=== PATIENT | female | born 1955 | race Caucasian/White ===

== ENCOUNTER → 2017-04-30 | Outpatient (CLI) | payer BC ==
--- NOTE | 2017-04-30 10:52 | RAD ---
Left foot, 3 views, 04/30/2017: History: Soft tissue mass at ankle There are mild degenerative changes at scattered interphalangeal joints and the first MTP joint. No fracture or destructive bony lesion is seen. There is minimal spurring at the ankle joint and the talonavicular articulation. There is mild generalized subcutaneous edema about the foot. IMPRESSION: 1. Mild scattered degenerative changes. 2. No acute bony abnormality is detected.
== END | disposition home or self-care (01) ==
LOC: DXRADRC 10:34
PROVIDERS: ATTEND Podiatrist Foot & Ankle Surgery
DX: M19.072 Primary osteoarthritis, left ankle and foot (principal); M79.89 Other specified soft tissue disorders
CPT/HCPCS: 73630

== ENCOUNTER → 2018-04-01 | Outpatient (CLI) | payer BC ==
--- NOTE | 2018-04-01 11:28 | RAD ---
DATE: 04/01/2018 EXAM: MAMMO ADI SANTA LT, BREAST LEFT HISTORY: Left breast pain COMPARISON: 07/24/2017 This study was interpreted with the benefit of Computerized Aided Detection (CAD). The breast parenchyma is heterogeneously dense, which could reduce sensitivity of mammography. Breast parenchyma level C. FINDINGS: 2-D and 3-D tomosynthesis imaging was performed in CC and MLO projections. No new or enlarging breast densities are seen. No architectural distortion or spiculated mass is evident. No suspicious microcalcifications are seen. IMPRESSION: Stable left mammograms without evidence of malignancy. Left breast ultrasound, 04/01/2018: A targeted ultrasound exam of the lateral aspect of left breast was performed in the area of reported pain. Normal heterogeneous fibroglandular shadows are present. No mass is identified. IMPRESSION: The targeted ultrasound exam of the left breast reveals no abnormality. BI-RADS CATEGORY: 2 BENIGN FINDING(S) RECOMMENDED FOLLOW-UP: 12M 12 MONTH FOLLOW-UP PQRS compliance statement: Patient information was entered into a reminder system with a target due date for the next mammogram. Mammography is a sensitive method for finding small breast cancers, but it does not detect them all and is not a substitute for careful clinical examination. A negative mammogram does not negate a clinically suspicious finding and should not result in delay in biopsying a clinically suspicious abnormality. "Our facility is accredited by the [employer] Mammography Program."
== END | disposition home or self-care (01) ==
LOC: MAMMO 10:02
PROVIDERS: ATTEND Nurse Practitioner Family
DX: N64.4 Mastodynia (principal)
CPT/HCPCS: 76641; 77065; G0279; 77061

== ENCOUNTER → 2018-09-18 | Outpatient (CLI) | payer BC ==
--- NOTE | 2018-09-18 17:55 | RAD ---
CHEST PA LATERAL History: CHEST WALL PAIN OFF AND ON SINCE NOVEMBER Comparison: None. Findings: The cardiomediastinal silhouette is normal. Pulmonary vasculature is normal. The lungs are clear. No pleural effusion or pneumothorax is seen. There is no acute bone abnormality. Minimal right convexity thoracic scoliosis. IMPRESSION: No acute cardiopulmonary process. Electronically signed by: Karson Bowling MD (09/18/2018 5:52 PM) [id number]
== END | disposition home or self-care (01) ==
LOC: RAD 14:55
PROVIDERS: ATTEND Physician Assistant Medical
DX: R07.89 Other chest pain (principal); M41.84 Other forms of scoliosis, thoracic region
CPT/HCPCS: 71046

== ENCOUNTER → 2019-07-13 | Outpatient (CLI) | payer BC ==
--- NOTE | 2019-07-13 08:52 | RAD ---
PQRS Compliance statement: One or more of the following individualized dose reduction techniques were utilized for this examination: 1. Automated exposure control. 2. Adjustment of the mA and/or kV according to patient size. 3. Use of iterative reconstruction technique. Indication:Left lower quadrant abdominal pain. TECHNIQUE: CT abdomen and pelvis without IV contrast with multiplanar reformats. COMPARISON: None FINDINGS: Limited evaluation of solid abdominal and pelvic organs due to lack of IV contrast. Heart is normal in size. No pericardial or pleural effusion. Clear lung bases. Noncontrast appearance of the liver, spleen, gallbladder, pancreas, adrenals and kidneys within normal limits. No enlarged retroperitoneal or pelvic adenopathy. No free pelvic fluid or ascites. No bowel obstruction. Low-lying midline cecum. Appendix not visualized. No right lower quadrant inflammatory changes. Status post hysterectomy. Urinary bladder demonstrates no radiopaque stones. No pneumoperitoneum. No suspicious bony lesion. IMPRESSION: Limited evaluation of solid abdominal and pelvic organs due to lack of IV contrast. No bowel obstruction. No nephrolithiasis or hydronephrosis. Electronically signed by: Lambert Conde DO (07/13/2019 8:49 AM) [facility]
== END | disposition home or self-care (01) ==
LOC: CT 08:03
PROVIDERS: ATTEND Physician Assistant Medical
DX: R10.32 Left lower quadrant pain (principal); Z90.710 Acquired absence of both cervix and uterus
CPT/HCPCS: 74176

== ENCOUNTER → 2019-07-23 | Outpatient (CLI) | payer BC ==
--- NOTE | 2019-07-23 17:03 | RAD ---
US PELVIS W/TV History: Left lower quadrant pelvic pain Comparison: None. Findings: Multiple transabdominal sonographic images of pelvis are submitted. There has been hysterectomy. Right ovary measured 1.8 x 1.6 x 1.1 cm. Left ovary measured 2 x 1.5 x 1.4 cm. There is normal low resistance vascularity ovaries bilaterally. No free fluid is demonstrated. Sonographic images of the left lateral pelvis at site of pain are submitted, no abnormality by ultrasound, some bowel present in this region. Urinary bladder morphology is within normal limits. Transvaginal ultrasound: Multiple transvaginal sonographic images of the pelvis are submitted. Ovaries could not be visualized. No free fluid is demonstrated. Impression: 1. There has been hysterectomy. No significant abnormality is demonstrated. Electronically signed by: Hayden Miller MD (07/23/2019 5:00 PM) [facility]
--- NOTE | 2019-07-23 18:19 | RAD ---
BILATERAL SCREENING MAMMOGRAM, 3-D History: Routine screening. Comparison: 07/26/2016, 07/24/2017 mammographic exams. Technique: MLO and CC digital tomosynthesis (3D) images obtained. Radiologist reviewed these images on dedicated workstation. Findings: Breast Tissue Density C : The breasts are heterogeneously dense, which may obscure small masses. There are no dominant masses, suspicious microcalcifications, or architectural distortion. IMPRESSION: No mammographic evidence of malignancy. Recommend routine screening. BI-RADS category 1: Negative. The images were reviewed with computer-aided detection. Patient information is entered into reminder system with a target due date for the next screening mammogram. Mammography is the most sensitive method for finding small breast cancers, but it does not detect them all and is not a substitute for careful clinical examination. A negative mammogram does not negate a clinically suspicious finding and should not result in delay in biopsying a clinically suspicious abnormality. "Our facility is accredited by the [employer] Mammography Program." Electronically signed by: Paulie Elizondo MD (07/23/2019 6:17 PM) [facility]
== END | disposition home or self-care (01) ==
LOC: US 08:42
PROVIDERS: ATTEND Physician Assistant Medical
DX: Z12.31 Encounter for screening mammogram for malignant neoplasm of breast (principal); R10.32 Left lower quadrant pain; Z90.710 Acquired absence of both cervix and uterus
CPT/HCPCS: 76830; 76856; 77063; 77067

== ENCOUNTER → 2019-08-06 | Outpatient (CLI) | payer BC ==
--- NOTE | 2019-08-06 14:44 | RAD ---
EXAM: CT Abdomen and Pelvis without IV contrast CLINICAL HISTORY: Left lower quadrant pain radiating to the left flank. COMPARISON: 07/13/2019 TECHNIQUE: Helical CT of the abdomen and pelvis without intravenous contrast. Axial, coronal and sagittal reformatted images were generated. PQRS compliance statement - One or more of the following individualized dose reduction techniques were utilized for this study: 1. Automated exposure control 2. Adjustment of the mA and/or kV according to patient size 3. Use of iterative reconstruction technique FINDINGS: Lack of intravenous contrast limits evaluation of solid organs, vasculature, and lymph nodes. Lower chest: Lung bases are clear. Abdomen and Pelvis: No focal liver lesion. Gallbladder is normal. No biliary ductal dilatation. Spleen is unremarkable. Adrenal glands are normal. Pancreas is unremarkable. No focal renal lesion. No renal tract calculus. Mild bladder wall thickening may be seen with cystitis. Large volume colonic stool content is seen, particularly in the right colon. Appendix is not seen. No significant right lower quadrant battery changes are seen. No small bowel dilatation. No abdominal or pelvic ascites. No abdominal or pelvic lymphadenopathy. Small fat-containing periumbilical hernia. There is normal in caliber. Bones: Osseous structures are grossly unremarkable. IMPRESSION: 1. No evidence for bowel obstruction. 2. Large volume colonic stool content particularly in the right colon. 3. No renal tract calculus. 4. Small fat-containing periumbilical hernia. Electronically signed by: Demetris Phillips MD (08/06/2019 2:41 PM) [id number]
== END | disposition home or self-care (01) ==
LOC: CT 12:02
PROVIDERS: ATTEND Physician Assistant Medical
DX: K42.9 Umbilical hernia without obstruction or gangrene (principal)
CPT/HCPCS: 74176

== ENCOUNTER → 2019-10-04 | Outpatient (CLI) | payer MEDICARE ==
--- NOTE | 2019-10-04 17:05 | RAD ---
LUMBAR SPINE MIN 4V History: Low back pain Comparison: May 20, 2012 Findings: 5 views of the lumbar spine are submitted. Lumbar vertebral body stature is maintained. There is negligible anterior spondylolisthesis at L3-4. There is multilevel lumbar facet degenerative change. There is mild L5-S1 degenerative disc disease. Impression: 1. There is negligible anterior spondylolisthesis L3-4. There is multilevel lumbar facet degenerative change. There is mild L5-S1 degenerative disc disease. Electronically signed by: Hayden Miller MD (10/04/2019 5:02 PM) [id number]
== END | disposition home or self-care (01) ==
LOC: DXRAD 15:10
PROVIDERS: ATTEND Physician Assistant Medical
DX: M43.16 Spondylolisthesis, lumbar region (principal); M51.37 Other intervertebral disc degeneration, lumbosacral region; M47.817 Spondylosis without myelopathy or radiculopathy, lumbosacral region
CPT/HCPCS: 72110

== ENCOUNTER → 2019-10-11 | Outpatient (CLI) | payer MEDICARE ==
--- NOTE | 2019-10-11 14:06 | RAD ---
DATE: 10/11/2019. EXAM: BREAST LEFT. HISTORY: Left breast and axillary pain laterally. COMPARISON: Screening mammography 07/23/2019. FINDINGS: Sonography of the left breast was performed in the retroareolar and 2-4:00 positions at the site of tenderness. Images of the left axilla were also performed. Mildly dilated ducts are noted deep to the nipple. There is no intraductal mass. In the region of concern laterally, only normal parenchyma is seen. There is no correlate for breast tenderness. Images of the axilla reveal small normal-appearing lymph nodes and no correlate for pain. BI-RADS CATEGORY: 2 BENIGN FINDING(S). RECOMMENDED FOLLOW-UP: CLIN FOLLOW UP IMAGING CLINICALLY INDICATED. 1. Recommend ongoing clinical follow-up of left breast tenderness. Continue yearly screening in June 2020. PQRS compliance statement: Patient information was entered into a reminder system with a target due date 07/23/2020 for the next mammogram. Mammography is a sensitive method for finding small breast cancers, but it does not detect them all and is not a substitute for careful clinical examination. A negative mammogram does not negate a clinically suspicious finding and should not result in delay in biopsying a clinically suspicious abnormality. "Our facility is accredited by the [employer] Mammography Program."
== END | disposition home or self-care (01) ==
LOC: US 12:53
PROVIDERS: ATTEND Physician Assistant Medical
DX: N64.4 Mastodynia (principal)
CPT/HCPCS: 76641

== ENCOUNTER → 2020-07-25 | Outpatient (CLI) | payer BC, MEDICARE ==
--- NOTE | 2020-07-27 10:44 | RAD ---
DATE: 07/25/2020 3:25 PM EXAM: MAMMO ADI SCREENING BILATERAL HISTORY: Screening COMPARISON: 07/23/2019, 07/24/2017 Bilateral CC and MLO views of the breasts were performed. Bilateral breast tomosynthesis was performed in CC and MLO projections. This study was interpreted with the benefit of Computerized Aided Detection (CAD). FINDINGS: Breast Density: HETERO The breast parenchyma Is heterogeneously dense, which could reduce sensitivity of mammography. Breast parenchyma level C No suspicious masses, microcalcifications or architectural distortion is present to suggest malignancy in either breast. The visualized axillae are unremarkable. IMPRESSION: No mammographic evidence of malignancy. BI-RADS CATEGORY: 1 NEGATIVE RECOMMENDED FOLLOW-UP: 12M 12 MONTH FOLLOW-UP Annual screening mammography is recommended, unless clinically indicated sooner based on symptoms or change in physical exam. PQRS compliance statement: Patient information was entered into a reminder system with a target due date for the next mammogram. Mammography is a sensitive method for finding small breast cancers, but it does not detect them all and is not a substitute for careful clinical examination. A negative mammogram does not negate a clinically suspicious finding and should not result in delay in biopsying a clinically suspicious abnormality. "Our facility is accredited by the [employer] Mammography Program."
== END | disposition home or self-care (01) ==
LOC: MAMMO 15:24
PROVIDERS: ATTEND Physician Assistant Medical
DX: Z12.31 Encounter for screening mammogram for malignant neoplasm of breast (principal)
CPT/HCPCS: 77063; 77067

== ENCOUNTER → 2021-01-19 | Outpatient (CLI) | payer MEDICARE ==
--- NOTE | 2021-01-19 11:45 | RAD ---
Examination: 1. Left digital diagnostic mammogram. 2. Left breast and axillary ultrasound. INDICATION: 65-year-old woman complaining of lateral left breast pain and tenderness in the left axil la. COMPARISON: Bilateral mammogram of 07/25/2020. TECHNIQUE: CC and MLO views of the left breast were obtained with 2-D and 3-D technique. Targeted ult rasound of the lateral left breast and left axilla was next pursued in the areas of patient reported concern. FINDINGS: Heterogeneously dense breast parenchyma. No developing mass, suspicious calcification or architectural distortion is appreciated. Ultrasound of the lateral left breast identifies a sonographically benign intramammary lymph node at the 3:30 o'clock position 8 cm from the nipple. Ultrasound of the left axilla reveals a 1.1 x 0.6 cm hypoechoic peripherally vascular lesion within t he skin in the left axilla that corresponds to the patient's palpable tenderness. IMPRESSION: Mammographically and sonographically benign findings with probable furuncle in the left axilla. BI-RADS Category 2 Benign findings Recommend clinical management which may include biopsy if there are any clinically suspicious finding s. In the absence of a clinically suspicious finding, recommend return to routine screening next due after 07/25/2021 Patient entered into a reminder system with target due date for next mammogram. Electronically signed by: Christiano Sheffield MD (01/19/2021 11:43 AM) [id number]
== END ==
LOC: MAMMO 08:53
PROVIDERS: ATTEND Physician Assistant Medical
DX: R92.2 Inconclusive mammogram (principal)
CPT/HCPCS: 76641; 77065; G0279; 77061

== ENCOUNTER → 2021-08-01 | Outpatient (CLI) | payer MEDICARE ==
--- NOTE | 2021-08-03 19:06 | RAD ---
DATE: 08/01/2021 EXAM: MAMMO ADI SCREENING BILATERAL HISTORY: Screening. History of right breast biopsy 1991. COMPARISON: Prior exams dating back to 2016 This study was interpreted with the benefit of Computerized Aided Detection (CAD). Breast Density: HETERO The breast parenchyma is heterogenously dense, which could reduce sensitivity of mammography. Breast parenchyma level C. FINDINGS: Stable small intramammary lymph nodes in the right breast. No mass, suspicious calcification, or architectural distortion in either breast. IMPRESSION: No evidence of malignancy. BI-RADS CATEGORY: 2 BENIGN FINDING(S) RECOMMENDED FOLLOW-UP: 12M 12 MONTH FOLLOW-UP PQRS compliance statement: Patient information was entered into a reminder system with a target due date for the next mammogram. Mammography is a sensitive method for finding small breast cancers, but it does not detect them all and is not a substitute for careful clinical examination. A negative mammogram does not negate a clinically suspicious finding and should not result in delay in biopsying a clinically suspicious abnormality. "Our facility is accredited by the [employer] Mammography Program."
== END ==
LOC: MAMMO 14:40
PROVIDERS: ATTEND Physician Assistant Medical
DX: Z12.31 Encounter for screening mammogram for malignant neoplasm of breast (principal); N63.10 Unspecified lump in the right breast, unspecified quadrant
CPT/HCPCS: 77063; 77067

== ENCOUNTER → 2021-10-10 | Day surgery (SDC) | payer MEDICARE ==
[2021-10-10 14:30] VITALS: BP 137/80
== END | disposition home or self-care (01) ==
LOC: SURG 14:13
PROVIDERS: ATTEND Anesthesiology
DX: M79.673 Pain in unspecified foot (principal); M79.2 Neuralgia and neuritis, unspecified; Z91.041 Radiographic dye allergy status
CPT/HCPCS: 99204; G0463